=== PATIENT | female | born 1970 | race Caucasian/White ===

== ENCOUNTER 2017-06-28 21:36 | Emergency (ER) | payer OTHER ==
[~2017-06-28] VITALS: Ht 170.2 cm; Wt 99.8 kg
[~2017-06-28 21:36] MED LIST: ARIP10 PO; Aspirin EC81 MG PO; BUSP10 PO; CARV3.125 PO; CEPH500 PO; ESCI20 PO; FOLI1 PO; FURO20 PO; LEVO750 PO; LISI5 PO; NAPR550 PO; OXYACE5T PO; RXNAPNA550 PO; SPIR25 PO; SULTRIDS PO; THIA100 PO
[2017-06-28 22:11] LABS: BASOPHILS ABSOLUTE AUTO 0.05 K/mm3 (0.00-0.23); BASOPHILS PERCENT AUTO 1 % (0-2); EOSINOPHILS ABSOLUTE AUTO 0.58 K/mm3 (0.00-0.68); EOSINOPHILS PERCENT AUTO 6 % (0-6); Hematocrit 30.4 % (33.0-51.0); Hemoglobin 9.8 g/dL (11.5-16.0); IMMATURE GRAN ABSOLUTE AUTO 0.02 K/mm3 (0.00-0.10); IMMATURE GRAN PERCENT AUTO 0 % (0-1); LYMPHOCYTES ABSOLUTE AUTO 2.22 K/mm3 (0.84-5.20); LYMPHOCYTES PERCENT AUTO 23 % (21-46); MONOCYTES PERCENT AUTO 13 % (4-13); Mean Corpuscular HGB 30.6 pg (26.0-34.0); Mean Corpuscular HGB Conc 32.2 g/dL (31.5-36.5); Mean Corpuscular Volume 95 fL (80-100); Mean Platelet Volume 8.2 fL (9.1-12.4); NEUTROPHILS ABSOLUTE AUTO 5.68 K/mm3 (1.96-9.15); NEUTROPHILS PERCENT AUTO 58 % (41-73); Platelet Count 434 K/mm3 (150-400); RDW Coefficient Variation 15.4 % (11.7-14.2); RDW Standard Deviation 53.4 fL (35.1-46.3); White Blood Cell Count 9.85 K/mm3 (4.00-11.30)
[2017-06-28 22:31] LABS: Alanine Aminotransfer (ALT/SGP 24 U/L (12-78); Albumin, Blood 3.3 g/dL (3.4-5.0); Albumin/Globulin Ratio 0.8 (0.8-1.8); Alk Phos 78 U/L (50-136); Anion Gap 10 mmol/L (6-16); Aspartate Aminotrans (AST/SGOT 24 U/L (12-37); Bilirubin, Total 0.1 mg/dL (0.1-1.0); Blood Urea Nitrogen 12 mg/dL (8-24); Bun/Creatinine Ratio 14.4 (12.0-20.0); CO2, Blood 23 mmol/L (21-32); Calcium, Blood 8.1 mg/dL (8.5-10.1); Chloride, Blood 106 mmol/L (98-108); Creatinine, Blood 0.83 mg/dL (0.40-1.00); Globulin, Blood 3.9 g/dL (2.2-4.0); Glomerular Filtration Rate >60 (60-); Glucose, Blood 132 mg/dL (70-99); Potassium, Blood 3.5 mmol/L (3.5-5.5); Sodium, Blood 139 mmol/L (136-145); Total Protein, Blood 7.2 g/dL (6.4-8.2); Troponin I <0.015 ng/mL (0.000-0.040)
[2017-06-28 22:35] LABS: Influenza A Negative (NEGATIVE); Influenza B Negative (NEGATIVE)
[2017-06-28] MEDS ORDERED: HEART MED (23:59)
[2017-06-28] MEDS ORDERED: ALBU90OI INH (23:59)
[2017-06-29] MEDS ORDERED: ALBU90OI INH (01:40)
[2018-04-04] MEDS ORDERED: ENTRESTO 97 MG1 EACH PO (13:11)
[2018-04-04] MEDS ORDERED: FERRETTS325 MG (13:12)
== END 2017-06-29 01:53 | disposition home or self-care (01) ==
LOC: ER 21:36
PROVIDERS: Emergency Medicine
DX: J20.9 Acute bronchitis, unspecified (principal); J45.909 Unspecified asthma, uncomplicated; Z90.89 Acquired absence of other organs; Z90.49 Acquired absence of other specified parts of digestive tract
CPT/HCPCS: 36415; 71046; 80053; 83880; 84484; 85025; 87804; 93005; 93010; 99283

== ENCOUNTER 2018-07-27 12:09 | Emergency (ER) | payer OTHER ==
[~2018-07-27] VITALS: Ht 170.2 cm; Wt 113.4 kg
[~2018-07-27 12:09] MED LIST changes: +ALBU90OI INH; +ENTRESTO 97 MG1 EACH PO; +FERRETTS325 MG; +HEART MED
[2018-07-27 12:41] LABS: BASOPHILS ABSOLUTE AUTO 0.06 K/mm3 (0.00-0.23); BASOPHILS PERCENT AUTO 1 % (0-2); EOSINOPHILS ABSOLUTE AUTO 0.58 K/mm3 (0.00-0.68); EOSINOPHILS PERCENT AUTO 7 % (0-6); Hematocrit 33.5 % (33.0-51.0); Hemoglobin 10.9 g/dL (11.5-16.0); IMMATURE GRAN ABSOLUTE AUTO 0.04 K/mm3 (0.00-0.10); IMMATURE GRAN PERCENT AUTO 1 % (0-1); LYMPHOCYTES ABSOLUTE AUTO 1.82 K/mm3 (0.84-5.20); LYMPHOCYTES PERCENT AUTO 21 % (21-46); MONOCYTES ABSOLUTE AUTO 1.54 K/mm3 (0.16-1.47); MONOCYTES PERCENT AUTO 18 % (4-13); Mean Corpuscular HGB 30.8 pg (26.0-34.0); Mean Corpuscular HGB Conc 32.5 g/dL (31.5-36.5); Mean Corpuscular Volume 95 fL (80-100); Mean Platelet Volume 8.5 fL (9.1-12.4); NEUTROPHILS ABSOLUTE AUTO 4.72 K/mm3 (1.96-9.15); NEUTROPHILS PERCENT AUTO 54 % (41-73); Platelet Count 436 K/mm3 (150-400); RDW Standard Deviation 45.2 fL (35.1-46.3); Red Blood Cell Count 3.54 M/mm3 (3.80-5.20); White Blood Cell Count 8.76 K/mm3 (4.00-11.30)
[2018-07-27 12:56] LABS: Alanine Aminotransfer (ALT/SGP 18 U/L (12-78); Albumin, Blood 3.3 g/dL (3.4-5.0); Albumin/Globulin Ratio 0.8 (0.8-1.8); Alk Phos 61 U/L (50-136); Anion Gap 8 mmol/L (6-16); Aspartate Aminotrans (AST/SGOT 11 U/L (12-37); Bilirubin, Total 0.1 mg/dL (0.1-1.0); Blood Urea Nitrogen 11 mg/dL (8-24); CO2, Blood 25 mmol/L (21-32); Calcium, Blood 8.8 mg/dL (8.5-10.1); Chloride, Blood 107 mmol/L (98-108); Creatinine, Blood 0.73 mg/dL (0.40-1.00); Glomerular Filtration Rate >60 (60-); Glucose, Blood 109 mg/dL (70-99); Potassium, Blood 3.6 mmol/L (3.5-5.5); Sodium, Blood 140 mmol/L (136-145); Total Protein, Blood 7.3 g/dL (6.4-8.2); Troponin I <0.015 ng/mL (0.000-0.040)
[2018-07-27] MEDS ORDERED: TRAZ50 PO (13:42)
[2018-07-27] MEDS ORDERED: LAMO25 PO (13:43)
[2018-07-27] MEDS ORDERED: BUSP10 PO (13:43)
[2018-07-27] MEDS ORDERED: K-Tab10 MEQ PO (13:43)
[2018-07-27] MEDS ORDERED: Naltrexone HCl50 MG PO (13:43)
[2018-07-27] MEDS ORDERED: Prednisone20 MG PO (14:16)
[2018-07-27] MEDS ORDERED: Zithromax250 MG PO (14:16)
== END 2018-07-27 14:35 | disposition home or self-care (01) ==
LOC: ER 12:09
PROVIDERS: Physician Assistant
DX: J44.0 Chronic obstructive pulmonary disease with (acute) lower respiratory infection (principal); J18.9 Pneumonia, unspecified organism; J45.901 Unspecified asthma with (acute) exacerbation; Z79.899 Other long term (current) drug therapy; Z79.82 Long term (current) use of aspirin; I10 Essential (primary) hypertension
CPT/HCPCS: 36415; 71046; 80053; 83880; 84484; 85025; 93005; 93010; 94640; 96374; 99284-25; J2930

== ENCOUNTER 2019-03-25 14:43 | Emergency (ER) | payer MEDICAID ==
[~2019-03-25] VITALS: Ht 170.2 cm; Wt 108.9 kg
[~2019-03-25 14:43] MED LIST changes: +K-Tab10 MEQ PO; +LAMO25 PO; +Naltrexone HCl50 MG PO; +Prednisone20 MG PO; +TRAZ50 PO; +Zithromax250 MG PO
[2019-03-25 15:19] LABS: BASOPHILS ABSOLUTE AUTO 0.09 K/mm3 (0.00-0.23); BASOPHILS PERCENT AUTO 1 % (0-2); EOSINOPHILS ABSOLUTE AUTO 0.16 K/mm3 (0.00-0.68); EOSINOPHILS PERCENT AUTO 2 % (0-6); Hematocrit 36.3 % (33.0-51.0); Hemoglobin 11.9 g/dL (11.5-16.0); IMMATURE GRAN ABSOLUTE AUTO 0.03 K/mm3 (0.00-0.10); IMMATURE GRAN PERCENT AUTO 0 % (0-1); LYMPHOCYTES ABSOLUTE AUTO 3.01 K/mm3 (0.84-5.20); LYMPHOCYTES PERCENT AUTO 30 % (21-46); MONOCYTES ABSOLUTE AUTO 0.94 K/mm3 (0.16-1.47); MONOCYTES PERCENT AUTO 9 % (4-13); Mean Corpuscular HGB 30.6 pg (26.0-34.0); Mean Corpuscular HGB Conc 32.8 g/dL (31.5-36.5); Mean Corpuscular Volume 93 fL (80-100); Mean Platelet Volume 8.6 fL (9.1-12.4); NEUTROPHILS ABSOLUTE AUTO 5.96 K/mm3 (1.96-9.15); NEUTROPHILS PERCENT AUTO 59 % (41-73); Platelet Count 584 K/mm3 (150-400); RDW Coefficient Variation 12.8 % (11.7-14.2); Red Blood Cell Count 3.89 M/mm3 (3.80-5.20); White Blood Cell Count 10.19 K/mm3 (4.00-11.30)
[2019-03-25 15:53] LABS: Troponin I <0.015 ng/mL (0.000-0.040)
[2019-03-25 16:00] LABS: Alanine Aminotransfer (ALT/SGP 19 U/L (12-78); Albumin, Blood 3.6 g/dL (3.4-5.0); Albumin/Globulin Ratio 0.9 (0.8-1.8); Alk Phos 77 U/L (50-136); Anion Gap 6 mmol/L (6-16); Aspartate Aminotrans (AST/SGOT 18 U/L (12-37); Bilirubin, Total 0.3 mg/dL (0.1-1.0); Blood Urea Nitrogen 18 mg/dL (8-24); Bun/Creatinine Ratio 17.3 (12.0-20.0); CO2, Blood 25 mmol/L (21-32); Calcium, Blood 9.2 mg/dL (8.5-10.1); Chloride, Blood 106 mmol/L (98-108); Creatinine, Blood 1.04 mg/dL (0.40-1.00); Globulin, Blood 3.9 g/dL (2.2-4.0); Glomerular Filtration Rate >60 (60-); Glucose, Blood 111 mg/dL (70-99); Potassium, Blood 4.1 mmol/L (3.5-5.5); Sodium, Blood 137 mmol/L (136-145); Total Protein, Blood 7.5 g/dL (6.4-8.2)
== END 2019-03-25 19:12 | disposition home or self-care (01) ==
LOC: ER 14:43
PROVIDERS: Physician Assistant
DX: I50.9 Heart failure, unspecified (principal); Z79.899 Other long term (current) drug therapy; Z79.82 Long term (current) use of aspirin; Z79.52 Long term (current) use of systemic steroids; J44.9 Chronic obstructive pulmonary disease, unspecified
CPT/HCPCS: 36415; 71046; 80053; 83880; 84484; 85025; 93005; 93010; 99285-25

== ENCOUNTER → 2020-03-28 | Outpatient (CLI) | payer OTHER | END | disposition home or self-care (01) | LOC: LAB SHORT 13:58 → LAB EV 13:58 | DX: N39.0 Urinary tract infection, site not specified (principal) | CPT/HCPCS: 87077; 87086; 87186 ==

== ENCOUNTER → 2022-05-07 | Outpatient (CLI) | payer OTHER ==
[2022-05-07 11:41] LABS: BASOPHILS ABSOLUTE AUTO 0.09 K/mm3 (0.00-0.23); BASOPHILS PERCENT AUTO 1 % (0-2); EOSINOPHILS ABSOLUTE AUTO 0.21 K/mm3 (0.00-0.68); EOSINOPHILS PERCENT AUTO 2 % (0-6); Hematocrit 36.4 % (33.0-51.0); Hemoglobin 12.4 g/dL (11.5-16.0); IMMATURE GRAN ABSOLUTE AUTO 0.06 K/mm3 (0.00-0.10); IMMATURE GRAN PERCENT AUTO 1 % (0-1); LYMPHOCYTES ABSOLUTE AUTO 2.87 K/mm3 (0.84-5.20); LYMPHOCYTES PERCENT AUTO 25 % (21-46); MONOCYTES ABSOLUTE AUTO 1.02 K/mm3 (0.16-1.47); MONOCYTES PERCENT AUTO 9 % (4-13); Mean Corpuscular HGB Conc 34.1 g/dL (31.5-36.5); Mean Corpuscular Volume 94 fL (80-100); Mean Platelet Volume 8.6 fL (9.1-12.4); NEUTROPHILS ABSOLUTE AUTO 7.36 K/mm3 (1.96-9.15); NEUTROPHILS PERCENT AUTO 63 % (41-73); Platelet Count 448 K/mm3 (150-400); RDW Coefficient Variation 12.8 % (11.7-14.2); RDW Standard Deviation 43.8 fL (35.1-46.3); Red Blood Cell Count 3.88 M/mm3 (3.80-5.20); White Blood Cell Count 11.61 K/mm3 (4.00-11.30)
[2022-05-07 11:45] LABS: Bun/Creatinine Ratio 11.9 (12.0-20.0); Calcium, Blood 8.8 mg/dL (8.5-10.1); Creatinine, Blood 1.09 mg/dL (0.40-1.00)
== END | disposition home or self-care (01) ==
LOC: LAB SHORT 11:36 → LAB 11:36
PROVIDERS: Physician Assistant Medical
DX: R07.9 Chest pain, unspecified (principal)
CPT/HCPCS: 80048; 84484; 85025

== ENCOUNTER → 2022-07-24 | Outpatient (CLI) | payer OTHER ==
[2022-07-25 15:11] LABS: HPV 16 Negative (Negative); HPV 18 Negative (Negative); HPV OTHER HR TYPES Negative (Negative)
== END | disposition home or self-care (01) ==
LOC: LAB SHORT 14:15 → LAB 14:15
PROVIDERS: Nurse Practitioner Family
DX: Z11.51 Encounter for screening for human papillomavirus (HPV) (principal)
CPT/HCPCS: 87624; G0145

== ENCOUNTER 2023-04-18 07:11 | Day surgery (SDC) | payer OTHER ==
[~2023-04-18] VITALS: Ht 172.7 cm; Wt 129.1 kg
[~2023-04-18 07:11] MED LIST changes: +CETI5 PO; +JARDIANCE10 MG PO; +METO100ER PO; +PRESERVISION A1 EAC2 PO; +Vivitrol380 MG
[2023-04-18] MEDS ORDERED: FLUT1DIS5 INH (07:21)
[2023-04-18] MEDS ORDERED: TORS10 PO (07:23)
[2023-04-18 07:37] VITALS: BP 151/92
--- NOTE | 2023-04-18 08:01 | NUR ---
04/18/23 0801 Gogo Carnes History, Chart, Medications and Allergies reviewed before start of procedure.MONITOR INTACT WITH CONTINUOUS PULSE OXIMETRY, CONTINUOUS END TITAL CO2, AND INTERMITTENT BLOOD PRESSURE.3-LEAD EKG REVIEWED WITH PHYSICIAN PRIOR TO START OF PROCEDURE.O2 VIA N/C INTACT THROUGHOUT SEDATION/PROCEDURE.SEE ANSESTHESIA RECORD.
[2023-04-18 09:28] VITALS: BP 114/68
--- NOTE | 2023-04-18 09:32 | NUR ---
PT A&O, ABLE TO REPOSTION. REPORT RECEIVED FROM [place]
[2023-04-18 09:41] VITALS: BP 127/76
--- NOTE | 2023-04-18 10:05 | NUR ---
Discharge instructions reviewed with patient. Patient verbalizes understanding. Copy given to patient to take home. Patient States Post-Procedure ride home has been arranged. Discharged via wheelchair to private car for ride home.
== END 2023-04-18 10:00 | disposition home or self-care (01) ==
LOC: ORSCMMR 07:11 → ORD 08:00 → ORSCMMR 08:00
PROVIDERS: Internal Medicine Gastroenterology
PROC: 0DBH8ZX Excision of Cecum, Via Natural or Artificial Opening Endoscopic, Diagnostic (ICD-10-PCS; principal; 2023-04-18 08:00)
DX: Z12.11 Encounter for screening for malignant neoplasm of colon (principal); K63.5 Polyp of colon; J44.9 Chronic obstructive pulmonary disease, unspecified; I42.9 Cardiomyopathy, unspecified; F31.9 Bipolar disorder, unspecified; I10 Essential (primary) hypertension; R73.03 Prediabetes; E66.01 Morbid (severe) obesity due to excess calories; Z68.42 Body mass index [BMI] 45.0-49.9, adult; K57.30 Diverticulosis of large intestine without perforation or abscess without bleeding; Z79.899 Other long term (current) drug therapy
CPT/HCPCS: 82947; 88305; J2704; J7120

== ENCOUNTER 2024-04-25 15:30 | Inpatient (IN) | payer OTHER ==
[~2024-04-25] VITALS: Ht 170.2 cm; Wt 113.4 kg
[~2024-04-25 15:30] MED LIST changes: -CEFU250T47 PO; -DAPAGLIFLOZIN10 MG PO; -DULERA 200 MCG-13 GM INH; -POTA10T PO
[2024-04-25] MEDS ORDERED: NS 1,000 ML IV SCH ×2 (16:35→19:55)
[2024-04-25 20:49] LABS: Bun/Creatinine Ratio 11.1 (12.0-20.0); Calcium, Blood 8.4 mg/dL (8.5-10.1); Creatinine, Blood 6.12 mg/dL (0.40-1.00); Potassium, Blood 3.9 mmol/L (3.5-5.5)
[2024-04-25] MEDS ORDERED: FLU VACC TS2024-25(6MOS UP)/PF 45 MCG/0.5 ML SYRINGE IM SCH (21:55)
[2024-04-25] MEDS ORDERED: Lactated Ringer's 1,000 ML IV SCH (22:00)
[2024-04-25] MEDS ORDERED: Albuterol 2.5 MG/3 ML VIAL INH PRN (22:10)
[2024-04-25] MEDS ORDERED: TraZODone HCl 50 MG Tab PO PRN (22:15)
[2024-04-25] MEDS ORDERED: Mometasone/Formoterol MDI 200/5 mcg 13 GM INH SCH (22:35)
[2024-04-25] MEDS ORDERED: Albuterol HFA200 ACT/6.7 GM INH INH PRN (22:35)
[2024-04-25 22:48] LABS: Source, Urine Clean Catch
[2024-04-25 23:00] LABS: Bilirubin, Urine Neg (Neg); Blood, Urine 5+ (Neg); Glucose Qualitative, Urine Neg (Neg); Ketones, Urine Neg (Neg); Leukocyte Esterase, Urine 3+ (Neg); Nitrite, Urine Neg (Neg); Protein, Urine 3+ (Neg); Specific Gravity, Urine 1.015 (1.003-1.022); Urobilinogen, Urine NORM (Normal)
[2024-04-25 23:21] LABS: Appearance, Urine Turbid (Clear); Color, Urine Pale Yellow (P-Yellow)
[2024-04-25 23:22] LABS: Amorphous Light (0-Heavy); Bacteria Many /hpf; Mucus Light (0-Heavy); Squamous Epithelial Cells Few /hpf (Few); White Blood Cells, Urine TNTC /hpf (0-5)
[2024-04-25 23:23] LABS: U Amphetamine Screen Not Detected; U Barbituate Screen Not Detected; U Benzodiazapine Screen Not Detected; U Buprenorphine Screen Not Detected; U Cannabinoids Screen Not Detected; U Cocaine Screen Not Detected; U Methadone Screen Not Detected; U Methamphetamine Screen Not Detected; U Opiates Screen Not Detected; U Oxycodone Screen Not Detected; U Phencyclidine Screen Not Detected
[2024-04-25 23:32] VITALS: BP 153/89
[2024-04-26] MEDS ORDERED: LamoTRIgine 25 MG Tab PO SCH ×2 (00:20→09:00)
[2024-04-26] MEDS ORDERED: Metoprolol Succinate 50 MG TABCR PO SCH ×2 (00:20→09:00)
[2024-04-26 04:22] VITALS: BP 94/57
[2024-04-26 04:27] VITALS: BP 130/76
[2024-04-26 04:57] LABS: BASOPHILS ABSOLUTE AUTO 0.07 K/mm3 (0.00-0.23); BASOPHILS PERCENT AUTO 1 % (0-2); EOSINOPHILS ABSOLUTE AUTO 0.23 K/mm3 (0.00-0.68); EOSINOPHILS PERCENT AUTO 2 % (0-6); Hematocrit 28.8 % (33.0-51.0); Hemoglobin 9.5 g/dL (11.5-16.0); IMMATURE GRAN ABSOLUTE AUTO 0.14 K/mm3 (0.00-0.10); IMMATURE GRAN PERCENT AUTO 1 % (0-1); LYMPHOCYTES ABSOLUTE AUTO 2.77 K/mm3 (0.84-5.20); LYMPHOCYTES PERCENT AUTO 20 % (21-46); MONOCYTES ABSOLUTE AUTO 1.22 K/mm3 (0.16-1.47); MONOCYTES PERCENT AUTO 9 % (4-13); Mean Corpuscular HGB 30.3 pg (26.0-34.0); Mean Corpuscular Volume 92 fL (80-100); Mean Platelet Volume 8.2 fL (9.1-12.4); NEUTROPHILS ABSOLUTE AUTO 9.33 K/mm3 (1.96-9.15); NEUTROPHILS PERCENT AUTO 68 % (41-73); Platelet Count 520 K/mm3 (150-400); RDW Coefficient Variation 14.7 % (11.7-14.2); RDW Standard Deviation 49.6 fL (35.1-46.3); Red Blood Cell Count 3.14 M/mm3 (3.80-5.20); White Blood Cell Count 13.76 K/mm3 (4.00-11.30)
[2024-04-26 05:31] LABS: Albumin, Blood 2.9 g/dL (3.4-5.0); Albumin/Globulin Ratio 0.6 (0.8-1.8); Bilirubin, Total 0.3 mg/dL (0.1-1.0); Bun/Creatinine Ratio 11.9 (12.0-20.0); Calcium, Blood 8.8 mg/dL (8.5-10.1); Creatinine, Blood 5.63 mg/dL (0.40-1.00); Globulin, Blood 4.5 g/dL (2.2-4.0); Total Protein, Blood 7.4 g/dL (6.4-8.2)
--- NOTE | 2024-04-26 05:33 | NUR ---
SHIFT SUMMARY PT ADMITTED TO [facility] AT 2330 FOR ACUTE KIDNEY FAILURE. PT HAD SYMPTOMS OF DIZZINESS WITH FALL EARLIER YESTERDAY AND WENT TO URGENT CARE. IT WAS THERE THAT HER KIDNEY FUNCTION WAS NOTED TO BE ABNORMAL. PT DENIES DIZZINESS THROUGH NIGHT. AWARE TO CALL FOR ASSIST BEFORE GETTING OUT OF BED. 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 PT CONNECTED TO IVF, CONTINOUS PULSE OX, AND TELE. IVF ORDERED X1 LITER. PT VOIDING VERY HAZY/CLOUDY URINE. I/O'S MAINTAINED. SIDE RAILS UP X2, CALL LIGHT WITHIN REACH. BED ALARM ON.
[2024-04-26 05:41] VITALS: BP 130/76
[2024-04-26 07:21] VITALS: BP 115/66
[2024-04-26] MEDS ORDERED: Lactated Ringer's 1,000 ML IV SCH (08:10)
[2024-04-26] MEDS ORDERED: BusPIRone HCl 10 MG Tab PO SCH (09:00)
[2024-04-26] MEDS ORDERED: Heparin Sodium,Porcine 5,000 UNIT/0.5 ML SDV SC SCH (09:00)
[2024-04-26] MEDS ORDERED: Enoxaparin 30 MG/0.3 ML SYR SC SCH (09:00)
[2024-04-26] MEDS ORDERED: CefTRIAXone Sodium 1,000 MG in NS 100 ML IV SCH (14:00)
[2024-04-26 14:43] LABS: Bun/Creatinine Ratio 11.8 (12.0-20.0); Calcium, Blood 9.3 mg/dL (8.5-10.1); Creatinine, Blood 5.42 mg/dL (0.40-1.00); Potassium, Blood 4.1 mmol/L (3.5-5.5)
[2024-04-26 14:56] LABS: Thyroid Stimulating Hormone 1.03 uIU/mL (0.360-4.800); Uric Acid, Blood 10.6 mg/dL (2.6-6.0)
--- NOTE | 2024-04-26 14:58 | NUR ---
SHIFT SUMMARY PATIENT INDEPENDENT TO SBA FOR EQUIPEMENT MANAGEMENT. POOR VISION DUE TO MACULAR DEGENERATION. A/O X4. LR INFUSING. RECEIVING ROCEPHIN IV. ULTRASOUND PERFORMED THIS SHIFT, AWAITING CT. VOIDING ADEQUATE AMOUNTS, 2 BM THIS SHIFT. NO C/O PAIN. EATING WELL, NO NAUSEA. CALL LIGHT IN REACH, CARES ONGOING.
[2024-04-26 15:53] VITALS: BP 116/63
[2024-04-26 19:43] LABS: Eosinophils-Raw #,Urine 1
[2024-04-26 19:50] VITALS: BP 126/81
[2024-04-26 19:50] LABS: White Blood Cells Urine 50-100 /hpf (0-5)
[2024-04-27 04:28] VITALS: BP 149/88
--- NOTE | 2024-04-27 05:09 | NUR ---
SHIFT SUMMARY PT CONTINUES TO HAVE CLOUDY/HAZY/TURBID URINE. DENIES ANY PAIN SYMPTOMS. IVF INFUSING THROUGH NIGHT. PT UP WITH SBA. SLEPT ON/OFF THROUGH THE NIGHT. AM LABS PENDING. CALL LIGHT WITHIN REACH, SIDERAILS UP X2.
[2024-04-27 07:21] LABS: Albumin, Blood 2.5 g/dL (3.4-5.0); Anion Gap 13 mmol/L (3-11); Blood Urea Nitrogen 58 mg/dL (8-24); Bun/Creatinine Ratio 12.9 (12.0-20.0); CO2, Blood 19 mmol/L (21-32); Chloride, Blood 113 mmol/L (98-108); Creatinine, Blood 4.51 mg/dL (0.40-1.00); Glomerular Filtration Rate 11 (60-); Glucose, Blood 103 mg/dL (70-99); Phosphorus, Blood 4.7 mg/dL (2.5-4.9); Potassium, Blood 4.7 mmol/L (3.5-5.5); Sodium, Blood 140 mmol/L (136-145)
[2024-04-27 07:25] VITALS: BP 110/60
[2024-04-27 08:01] LABS: BASOPHILS ABSOLUTE AUTO 0.05 K/mm3 (0.00-0.23); BASOPHILS PERCENT AUTO 0 % (0-2); EOSINOPHILS ABSOLUTE AUTO 0.23 K/mm3 (0.00-0.68); EOSINOPHILS PERCENT AUTO 2 % (0-6); Hematocrit 24.9 % (33.0-51.0); Hemoglobin 8.3 g/dL (11.5-16.0); IMMATURE GRAN ABSOLUTE AUTO 0.08 K/mm3 (0.00-0.10); IMMATURE GRAN PERCENT AUTO 1 % (0-1); LYMPHOCYTES ABSOLUTE AUTO 2.61 K/mm3 (0.84-5.20); LYMPHOCYTES PERCENT AUTO 23 % (21-46); MONOCYTES ABSOLUTE AUTO 1.31 K/mm3 (0.16-1.47); MONOCYTES PERCENT AUTO 12 % (4-13); Mean Corpuscular HGB 30.9 pg (26.0-34.0); Mean Corpuscular HGB Conc 33.3 g/dL (31.5-36.5); Mean Corpuscular Volume 93 fL (80-100); Mean Platelet Volume 8.1 fL (9.1-12.4); NEUTROPHILS ABSOLUTE AUTO 6.97 K/mm3 (1.96-9.15); NEUTROPHILS PERCENT AUTO 62 % (41-73); Platelet Count 500 K/mm3 (150-400); RDW Coefficient Variation 14.8 % (11.7-14.2); Red Blood Cell Count 2.69 M/mm3 (3.80-5.20); White Blood Cell Count 11.25 K/mm3 (4.00-11.30)
[2024-04-27] MEDS ORDERED: TraZODone HCl 100 MG Tab PO PRN (09:50)
--- NOTE | 2024-04-27 11:50 | NUR ---
Upon receiving a referral for spiritual care, I visited the patient. The patient is sitting on the EOB and alert. She talks at length about the emotional season that she is in and how she has had to lean into her connections to her thelma, family and friends. She states that she feels all the support and love but also realizes her role in getting well and staying healthy. SHe expresses her fears and worries. I provided therapeutic listening, anxiety containment, gentle certified travel counselor and prayer. Patient responded well and showed signs of reduced stress and greater peace. I will continue to remain available to patient and family.
--- NOTE | 2024-04-27 16:30 | NUR ---
SHIFT SUMMARY PT WOKE FOR SHIFT REPORT THIS AM. NO C/O. PT RECIEVING IVF'S FOR ARF. INDEPENDENT IN AND TO BTHRM. REQUESTED INCREASE IN TRAZADONE TO HOME DOSE; DR AGOSTO NOTIFIED. NEW ORDERS PLACED. DR AGOSTO HERE TO SEE PT AND DISCUSS PLAN OF CARE. VISITORS TO THIS AFTERNOON. PLEASANT AND CO-OP WITH CARE. ABLE TO MAKE NEEDS KNOWN.
[2024-04-27 16:58] VITALS: BP 117/57
[2024-04-27 19:20] VITALS: BP 139/78
[2024-04-28 02:28] VITALS: BP 142/72
--- NOTE | 2024-04-28 05:28 | NUR ---
SHIFT SUMMARY PT UP IN ROOM AND AMBULATED IN HALLWAY WITH SBA. URINE IS STILL CLOUDY/HAZY, BUT APPEARS MORE YELLOW THIS SHIFT. IVF CONTINUES. PT SLEPT OFF/ON THROUGH THE NIGHT. CALL LIGHT WITHIN REACH, SIDE RAILS UP X2, LABS PENDING.
[2024-04-28 05:50] LABS: BASOPHILS ABSOLUTE AUTO 0.05 K/mm3 (0.00-0.23); BASOPHILS PERCENT AUTO 0 % (0-2); EOSINOPHILS ABSOLUTE AUTO 0.26 K/mm3 (0.00-0.68); EOSINOPHILS PERCENT AUTO 2 % (0-6); Hematocrit 25.3 % (33.0-51.0); Hemoglobin 8.2 g/dL (11.5-16.0); IMMATURE GRAN PERCENT AUTO 1 % (0-1); LYMPHOCYTES ABSOLUTE AUTO 2.72 K/mm3 (0.84-5.20); LYMPHOCYTES PERCENT AUTO 22 % (21-46); MONOCYTES ABSOLUTE AUTO 1.41 K/mm3 (0.16-1.47); MONOCYTES PERCENT AUTO 11 % (4-13); Mean Corpuscular HGB 30.1 pg (26.0-34.0); Mean Corpuscular HGB Conc 32.4 g/dL (31.5-36.5); Mean Corpuscular Volume 93 fL (80-100); Mean Platelet Volume 8.6 fL (9.1-12.4); NEUTROPHILS ABSOLUTE AUTO 7.87 K/mm3 (1.96-9.15); NEUTROPHILS PERCENT AUTO 63 % (41-73); Platelet Count 525 K/mm3 (150-400); RDW Coefficient Variation 14.9 % (11.7-14.2); RDW Standard Deviation 51.1 fL (35.1-46.3); Red Blood Cell Count 2.72 M/mm3 (3.80-5.20); White Blood Cell Count 12.41 K/mm3 (4.00-11.30)
[2024-04-28 06:10] LABS: Bun/Creatinine Ratio 13.2 (12.0-20.0); Creatinine, Blood 3.87 mg/dL (0.40-1.00)
[2024-04-28 07:25] VITALS: BP 128/74
[2024-04-28] MEDS ORDERED: DAPAGLIFLOZIN10 MG PO (10:31)
[2024-04-28] MEDS ORDERED: POTA10T PO (10:51)
[2024-04-28] MEDS ORDERED: Lactated Ringer's 1,000 ML IV SCH (13:00)
--- NOTE | 2024-04-28 16:00 | NUR ---
SHIFT SUMMARY PT RESTING QUIETLY AT START OF SHIFT. WOKE FOR SHIFT REPORT. IVF'S INFUSING PER EMAR IN NEW IV PLACED LAST NIGHT. PT UP AND DOWN OUT OF BED AND UP TO EOB, OCCLUDING IV SITE. IV SITE NO LONGER PATENT. DR DAVEY NOTIFIED; PT NEEDING ONE MORE DAY OF IVF'S AND THEN TO D/C HOME TOMORROW. [facility]RG RN'S NOTIFIED AND ABLE TO PLACE NEW IV WITH US. PT IS VERY DIFFICULT START. VISITORS TO THIS AFTERNOON. HOME MED LIST OBTAINED FROM [facility] PER ORDERS. MED LIST UPDATED. DR DAVEY GIVEN LIST TO LOOK OVER WHEN HERE TO SEE PT. PT RESTING QUIETLY AT THIS TIME. CALL LT IN REACH.
[2024-04-28 16:40] VITALS: BP 138/75
[2024-04-28 19:43] VITALS: BP 117/66
[2024-04-29 02:08] VITALS: BP 127/67
--- NOTE | 2024-04-29 05:55 | NUR ---
SHIFT SUMMARY PT INDEPENDENT IN ROOM. VOIDING WITHOUT DIFFICULTY. URINE REMAINS CLOUDY, BUT IS MUCH JUICE PACKAGING MACHINES SETTER IN COLOR. DENIES THE NEED FOR PAIN MEDICATION. IVF CONTINUES TO INFUSE. SLEPT ON/OFF THROUGH THE NIGHT. CALL LIGHT WITHIN REACH. SIDE RAILS UP X2.
[2024-04-29 06:24] LABS: Bun/Creatinine Ratio 12.5 (12.0-20.0); Calcium, Blood 9.1 mg/dL (8.5-10.1); Creatinine, Blood 3.04 mg/dL (0.40-1.00); Potassium, Blood 4.1 mmol/L (3.5-5.5)
[2024-04-29 06:42] LABS: ALBUMIN 3.12 g/dL (3.75-5.01); ALPHA 1 GLOBULIN 0.46 g/dL (0.19-0.46); ALPHA 2 GLOBULIN 1.06 g/dL (0.48-1.05); BETA GLOBULIN 0.77 g/dL (0.48-1.10); IMMUNOFIXATION REFLEX Not Done; TOTAL PROTEIN,SERUM 6.7 g/dL (6.3-8.2)
[2024-04-29 07:35] VITALS: BP 125/70
[2024-04-29] MEDS ORDERED: Acetaminophen 325 MG TABLET PO PRN (09:30)
[2024-04-29] MEDS ORDERED: CEFU250T47 PO (12:10)
[2024-04-29] MEDS ORDERED: DULERA 200 MCG-13 GM INH (12:10)
--- NOTE | 2024-04-29 12:44 | NUR ---
PT DISCHARGED THE PT VERBALIZED UNDERSTANDING OF THE DC INSTRUCTIONS. PTS PRESCRIPTIONS WERE FAXED TO HER PHARMACY. THE PT WAS REMINDED TO SHEDULE AN APPOINTMENT WITH HER PCP FOR POST HOSPITAL REVIEW. THE PT WAS TRANSFERED VIA WHEELCHAIR ACCOMPANIED BY THE LINING PARTS SEWER TO MEET HER RIDE.
== END 2024-04-29 12:39 | disposition home or self-care (01) | DRG 683 ==
LOC: ER 15:30 → MEDS 15:31 → ENPENDDIS 04-29 11:49 → MEDS 04-29 12:39
PROVIDERS: Emergency Medicine; Internal Medicine; Student in an Organized Health Care Education/Training Program; ADMIT Internal Medicine
DX: N17.9 Acute kidney failure, unspecified (principal); I50.22 Chronic systolic (congestive) heart failure; N39.0 Urinary tract infection, site not specified; F31.9 Bipolar disorder, unspecified; R79.1 Abnormal coagulation profile; J44.9 Chronic obstructive pulmonary disease, unspecified; D64.9 Anemia, unspecified; F10.11 Alcohol abuse, in remission; F15.11 Other stimulant abuse, in remission; Z88.8 Allergy status to other drugs, medicaments and biological substances; Z79.899 Other long term (current) drug therapy; Z79.82 Long term (current) use of aspirin; Z90.49 Acquired absence of other specified parts of digestive tract; Z90.89 Acquired absence of other organs; Z98.890 Other specified postprocedural states; R55 Syncope and collapse
CPT/HCPCS: 36415; 71046; 74150; 76770; 80048; 80053; 80069; 81001; 82570; 82784; 83521; 84155; 84165; 84443; 84484; 84540; 84550; 85025; 85379; 86334; 87077; 87086; 87186; 87205; 93005; 93010; 94640; 94664; 94760; 94762; 96360; 99284-25; A9270; J0696; J1644; J7030; J7120

== ENCOUNTER → 2024-04-25 | Outpatient (CLI) | payer OTHER ==
[~2024-04-25] MED LIST changes: +CEFU250T47 PO; +DAPAGLIFLOZIN10 MG PO; +DULERA 200 MCG-13 GM INH; +FLUT1DIS5 INH; +POTA10T PO; +TORS10 PO
[2024-04-25 14:17] LABS: BASOPHILS ABSOLUTE AUTO 0.06 K/mm3 (0.00-0.23); BASOPHILS PERCENT AUTO 1 % (0-2); EOSINOPHILS ABSOLUTE AUTO 0.16 K/mm3 (0.00-0.68); EOSINOPHILS PERCENT AUTO 1 % (0-6); Hemoglobin 9.2 g/dL (11.5-16.0); IMMATURE GRAN ABSOLUTE AUTO 0.11 K/mm3 (0.00-0.10); IMMATURE GRAN PERCENT AUTO 1 % (0-1); LYMPHOCYTES ABSOLUTE AUTO 2.31 K/mm3 (0.84-5.20); LYMPHOCYTES PERCENT AUTO 18 % (21-46); MONOCYTES PERCENT AUTO 10 % (4-13); Mean Corpuscular HGB 29.8 pg (26.0-34.0); Mean Corpuscular HGB Conc 32.9 g/dL (31.5-36.5); Mean Corpuscular Volume 91 fL (80-100); Mean Platelet Volume 8.2 fL (9.1-12.4); NEUTROPHILS ABSOLUTE AUTO 8.69 K/mm3 (1.96-9.15); NEUTROPHILS PERCENT AUTO 69 % (41-73); Platelet Count 476 K/mm3 (150-400); RDW Coefficient Variation 14.8 % (11.7-14.2); Red Blood Cell Count 3.09 M/mm3 (3.80-5.20); White Blood Cell Count 12.53 K/mm3 (4.00-11.30)
[2024-04-25 14:23] LABS: Bun/Creatinine Ratio 10.1 (12.0-20.0); Calcium, Blood 8.8 mg/dL (8.5-10.1); Creatinine, Blood 7.02 mg/dL (0.40-1.00); Potassium, Blood 3.6 mmol/L (3.5-5.5)
== END | disposition home or self-care (01) ==
LOC: LAB SHORT 14:13 → LAB 14:13
PROVIDERS: Physician Assistant Surgical
DX: R55 Syncope and collapse (principal)
CPT/HCPCS: 80048; 84484; 85025; 85379

== ENCOUNTER → 2024-05-06 | Outpatient (CLI) | payer OTHER ==
[~2024-05-06] MED LIST changes: +CEFU250T47 PO; +DAPAGLIFLOZIN10 MG PO; +DULERA 200 MCG-13 GM INH; +LAMO100 PO; -LAMO25 PO; +POTA10T PO; +Prinivil10 MG PO
== END ==
LOC: LAB 17:40 → LAB SHORT 17:40
DX: M54.50 Low back pain, unspecified (principal)
CPT/HCPCS: 87086

== ENCOUNTER → 2024-05-08 | Outpatient (CLI) | payer OTHER ==
[~2024-05-08] MED LIST changes: -LAMO100 PO; +LAMO25 PO; -Prinivil10 MG PO
== END ==
LOC: LAB 15:28 → LAB SHORT 15:28
DX: N39.0 Urinary tract infection, site not specified (principal)
CPT/HCPCS: 87086

== ENCOUNTER 2024-05-24 08:45 | Inpatient (IN) | payer MEDICARE, OTHER ==
[~2024-05-24] VITALS: Ht 170.2 cm; Wt 121.6 kg
[~2024-05-24 08:45] MED LIST changes: +LAMO100 PO; -LAMO25 PO
[2024-05-24] MEDS ORDERED: Ondansetron HCl 2 MG / ML 2ML Vial IV ONE (10:10)
[2024-05-24] MEDS ORDERED: NS 1,000 ML IV SCH (10:10)
[2024-05-24 10:25] LABS: BASOPHILS ABSOLUTE AUTO 0.07 K/mm3 (0.00-0.23); BASOPHILS PERCENT AUTO 0 % (0-2); EOSINOPHILS ABSOLUTE AUTO 0.16 K/mm3 (0.00-0.68); EOSINOPHILS PERCENT AUTO 1 % (0-6); Hematocrit 30.8 % (33.0-51.0); Hemoglobin 9.8 g/dL (11.5-16.0); IMMATURE GRAN PERCENT AUTO 1 % (0-1); LYMPHOCYTES ABSOLUTE AUTO 2.02 K/mm3 (0.84-5.20); LYMPHOCYTES PERCENT AUTO 11 % (21-46); MONOCYTES ABSOLUTE AUTO 1.58 K/mm3 (0.16-1.47); MONOCYTES PERCENT AUTO 8 % (4-13); Mean Corpuscular HGB 30.4 pg (26.0-34.0); Mean Corpuscular HGB Conc 31.8 g/dL (31.5-36.5); Mean Corpuscular Volume 96 fL (80-100); Mean Platelet Volume 8.3 fL (9.1-12.4); NEUTROPHILS ABSOLUTE AUTO 15.27 K/mm3 (1.96-9.15); NEUTROPHILS PERCENT AUTO 80 % (41-73); Platelet Count 452 K/mm3 (150-400); RDW Coefficient Variation 14.9 % (11.7-14.2); RDW Standard Deviation 52.6 fL (35.1-46.3); Red Blood Cell Count 3.22 M/mm3 (3.80-5.20)
[2024-05-24 10:54] LABS: Albumin, Blood 3.2 g/dL (3.4-5.0); Albumin/Globulin Ratio 0.7 (0.8-1.8); Bilirubin, Total 0.3 mg/dL (0.1-1.0); Bun/Creatinine Ratio 10.6 (12.0-20.0); Calcium, Blood 9.7 mg/dL (8.5-10.1); Creatinine, Blood 1.8 mg/dL (0.40-1.00); Globulin, Blood 4.6 g/dL (2.2-4.0); Potassium, Blood 3.9 mmol/L (3.5-5.5); Total Protein, Blood 7.8 g/dL (6.4-8.2)
[2024-05-24 11:13] LABS: Source, Urine Clean Catch
[2024-05-24 11:17] LABS: Appearance, Urine Hazy (Clear); Bilirubin, Urine Neg (Neg); Blood, Urine 5+ (Neg); Glucose Qualitative, Urine 3+ (Neg); Ketones, Urine Neg (Neg); Leukocyte Esterase, Urine 3+ (Neg); Nitrite, Urine Pos (Neg); Protein, Urine 3+ (Neg); Specific Gravity, Urine 1.015 (1.003-1.022); Urobilinogen, Urine NORM (Normal)
[2024-05-24 11:33] LABS: Color, Urine Pale Yellow (P-Yellow)
[2024-05-24 11:34] LABS: Red Blood Cells, Urine 25-50 /hpf (0-2); White Blood Cells, Urine 50-100 /hpf (0-5)
[2024-05-24 11:35] LABS: Bacteria Many /hpf; Mucus Light (0-Heavy); Squamous Epithelial Cells Rare /hpf (Few)
[2024-05-24] MEDS ORDERED: NS 1,000 ML IV ONE (14:04)
[2024-05-24] MEDS ORDERED: Ondansetron HCl 2 MG / ML 2ML Vial ONE (14:04)
[2024-05-24] MEDS ORDERED: CefTRIAXone Sodium 1,000 MG in NS 100 ML IV ONE (15:00)
[2024-05-24] MEDS ORDERED: OxyCODONE HCL 5 MG TAB PO ONE (16:15)
[2024-05-24] MEDS ORDERED: RX Prepack 6 Tabs Oxycodone 5mg UD ONE (16:35)
[2024-05-24] MEDS ORDERED: RX Prepack 2 Tabs Ondansetron ODT 4MG UD ONE (16:40)
[2024-05-24] MEDS ORDERED: HYDROmorphone HCl/Pf 1MG SYR IV ONE (17:15)
[2024-05-24] MEDS ORDERED: Ondansetron HCl 2 MG / ML 2ML Vial IV PRN (19:25)
[2024-05-24] MEDS ORDERED: Metoclopramide HCl 5MG / ML 2ML Vial IV PRN (19:25)
[2024-05-24] MEDS ORDERED: Lactated Ringer's 1,000 ML IV SCH (19:25)
[2024-05-24] MEDS ORDERED: FentaNYL Citrate 50 MCG/ML 2 ML Injection IV PRN (19:25)
[2024-05-24] MEDS ORDERED: OxyCODONE 5 mg/Acetamin 325 mg TABLET PO PRN (19:25)
[2024-05-24] MEDS ORDERED: FLU VACC TS2024-25(6MOS UP)/PF 45 MCG/0.5 ML SYRINGE IM ONE (19:25)
[2024-05-24] MEDS ORDERED: TraZODone HCl 100 MG Tab PO PRN (19:35)
[2024-05-24] MEDS ORDERED: Albuterol 2.5 MG/3 ML VIAL INH PRN (19:35)
[2024-05-24] MEDS ORDERED: Mometasone/Formoterol MDI 100/5 mcg 13 GM INH SCH (20:40)
[2024-05-24] MEDS ORDERED: Sennosides 8.6 MG Tab PO SCH (21:00)
[2024-05-24] MEDS ORDERED: Lactobacil 2-S.Thermo-Bifido 1 1 Cap PO SCH ×2 (21:00)
[2024-05-24] MEDS ORDERED: BusPIRone HCl 10 MG Tab PO SCH (21:00)
[2024-05-24 21:17] VITALS: BP 150/82
[2024-05-25 03:46] VITALS: BP 133/73
--- NOTE | 2024-05-25 05:40 | NUR ---
SHIFT SUMMARY: PT IS ALERT AND ORIENTED. PT IS CALM AND COOPERATIVE WITH CARE. PT CALLS APPROPRIATELY. PT IS INDEPENDENT IN THE ROOM. PT REPORTS PAIN ON SEVERAL OCCASIONS, MEDICATING PER EMAR. PT DENIES NAUSEA, VOMITING, AND SOB. FLUIDS RUNNING ORDERED. PT SLEPT MUCH OF THE SHIFT WHEN NOT DISTURBED. NO ACUTE CHANGES OR COMPLICATIONS OVERNIGHT. BED IN LOW POSITION, CALL LIGHT WITHIN REACH. WILL REPORT TO DAY NURSE.
[2024-05-25 05:41] LABS: BASOPHILS ABSOLUTE AUTO 0.06 K/mm3 (0.00-0.23); BASOPHILS PERCENT AUTO 0 % (0-2); EOSINOPHILS ABSOLUTE AUTO 0.01 K/mm3 (0.00-0.68); EOSINOPHILS PERCENT AUTO 0 % (0-6); Hematocrit 25.6 % (33.0-51.0); Hemoglobin 8.3 g/dL (11.5-16.0); IMMATURE GRAN ABSOLUTE AUTO 0.05 K/mm3 (0.00-0.10); IMMATURE GRAN PERCENT AUTO 0 % (0-1); LYMPHOCYTES ABSOLUTE AUTO 2.27 K/mm3 (0.84-5.20); LYMPHOCYTES PERCENT AUTO 15 % (21-46); MONOCYTES ABSOLUTE AUTO 2.12 K/mm3 (0.16-1.47); MONOCYTES PERCENT AUTO 14 % (4-13); Mean Corpuscular HGB 30.4 pg (26.0-34.0); Mean Corpuscular HGB Conc 32.4 g/dL (31.5-36.5); Mean Corpuscular Volume 94 fL (80-100); Mean Platelet Volume 8.4 fL (9.1-12.4); NEUTROPHILS PERCENT AUTO 71 % (41-73); Platelet Count 386 K/mm3 (150-400); RDW Standard Deviation 52.2 fL (35.1-46.3); Red Blood Cell Count 2.73 M/mm3 (3.80-5.20); White Blood Cell Count 15.51 K/mm3 (4.00-11.30)
[2024-05-25 06:08] LABS: Bun/Creatinine Ratio 9.1 (12.0-20.0); Creatinine, Blood 1.97 mg/dL (0.40-1.00); Magnesium, Blood 1.8 mg/dL (1.6-2.4); Potassium, Blood 3.5 mmol/L (3.5-5.5)
[2024-05-25 07:35] VITALS: BP 120/73
[2024-05-25] MEDS ORDERED: Metoprolol Succinate 50 MG TABCR PO SCH (09:00)
[2024-05-25] MEDS ORDERED: LamoTRIgine 100 MG Tab PO SCH (09:00)
[2024-05-25] MEDS ORDERED: Aspirin 81 MG Chew PO SCH (09:00)
[2024-05-25] MEDS ORDERED: Docusate Sodium 100 MG Cap PO SCH (09:00)
[2024-05-25] MEDS ORDERED: Heparin Sodium 5000 Units/ML 1ML MDV SC SCH (09:00)
[2024-05-25] MEDS ORDERED: CefTRIAXone Sodium 1,000 MG in NS 100 ML IV SCH (09:00)
[2024-05-25] MEDS ORDERED: NS 250 ML IV PRN ×2 (09:15→10:20)
[2024-05-25] MEDS ORDERED: Prinivil10 MG PO (13:43)
[2024-05-25] MEDS ORDERED: OxyCODONE 5 mg/Acetamin 325 mg TABLET PO PRN (14:05)
[2024-05-25] MEDS ORDERED: Acetaminophen 325 MG TABLET PO PRN (14:05)
--- NOTE | 2024-05-25 18:38 | NUR ---
SHIFT SUMMARY- PT ALERT, ORIENTED, INDEPENDENT IN THE ROOM. PT HAS LR RUNNING PER EMAR. SHE HAS BEEN VOIDING SLIGHTLY PINK URINE WITH SEDIMENT, DR BRANDON. PT WAS MEDICATED WITH OXY, HOWEVER HER BIGGEST PAIN COMPLAINT WAS A HEADACHE. CALED DR PHIPPS AND RECIEVED AN ORDER FOR TYLENOL, PT STATED THAT HELPED TAKING HER 5/10 DOWN TO 3/10. PT CURRENTLY IN BED, CALL LIGHT IN REACH NO S&S OF DISTRESS NOTED.
[2024-05-25 19:06] VITALS: BP 123/70
[2024-05-26 04:10] VITALS: BP 155/83
--- NOTE | 2024-05-26 05:30 | NUR ---
AAOX4, INDEPENDENT IN ROOM AND USES CALL LIGHT APROPRIATELY. URINATING WELL WITHOUT PAIN, DENIES FLANK PAIN. RESTED WELL THOUROUT THE NIGHT AND ANTICIPATING GOING HOME THIS AM.
[2024-05-26 06:19] LABS: BASOPHILS ABSOLUTE AUTO 0.06 K/mm3 (0.00-0.23); BASOPHILS PERCENT AUTO 1 % (0-2); EOSINOPHILS ABSOLUTE AUTO 0.13 K/mm3 (0.00-0.68); EOSINOPHILS PERCENT AUTO 1 % (0-6); Hematocrit 23.6 % (33.0-51.0); Hemoglobin 7.7 g/dL (11.5-16.0); IMMATURE GRAN ABSOLUTE AUTO 0.07 K/mm3 (0.00-0.10); IMMATURE GRAN PERCENT AUTO 1 % (0-1); LYMPHOCYTES ABSOLUTE AUTO 2.01 K/mm3 (0.84-5.20); LYMPHOCYTES PERCENT AUTO 18 % (21-46); MONOCYTES ABSOLUTE AUTO 1.42 K/mm3 (0.16-1.47); MONOCYTES PERCENT AUTO 12 % (4-13); Mean Corpuscular HGB 30.8 pg (26.0-34.0); Mean Corpuscular HGB Conc 32.6 g/dL (31.5-36.5); Mean Corpuscular Volume 94 fL (80-100); Mean Platelet Volume 8.2 fL (9.1-12.4); NEUTROPHILS ABSOLUTE AUTO 7.73 K/mm3 (1.96-9.15); NEUTROPHILS PERCENT AUTO 68 % (41-73); Platelet Count 376 K/mm3 (150-400); RDW Coefficient Variation 15.2 % (11.7-14.2); RDW Standard Deviation 52.5 fL (35.1-46.3); White Blood Cell Count 11.42 K/mm3 (4.00-11.30)
[2024-05-26 06:45] LABS: Bun/Creatinine Ratio 10.2 (12.0-20.0); Creatinine, Blood 1.86 mg/dL (0.40-1.00); Potassium, Blood 4.1 mmol/L (3.5-5.5)
[2024-05-26 07:50] VITALS: BP 166/96
[2024-05-26 10:34] VITALS: BP 138/75
[2024-05-26] MEDS ORDERED: CEFP200 PO (11:36)
--- NOTE | 2024-05-26 12:27 | NUR ---
DISCHARGE SUMMARY PATIENT MEDICATION AND EDUCATION PRINTOUTS PROVIDED TO PATIENT AND REVIEWED WITH PATIENT. PATIENT DENIES ANY PAIN AT THIS TIME. SIGNATURE OBTAINED. PATIENT IV REMOVED BY NURSES SUPERVISOR AT 1215. PATIENT LEFT UNIT AT 1225 VIA AMBUTLATION. SHE DECLINED OFFER FOR WHEELCHAIR TO FRONT ENTRANCE WHERE SHE WILL BE LEAVING VIA PRIVATE VEHICLE WITH FRIEND.
== END 2024-05-26 12:33 | disposition home or self-care (01) | DRG 690 ==
LOC: ER 08:45 → ERHOLD 19:21 → MEDS 19:21
PROVIDERS: Nurse Practitioner Acute Care; Physician Assistant; ADMIT Student in an Organized Health Care Education/Training Program
DX: N13.6 Pyonephrosis (principal); I13.0 Hypertensive heart and chronic kidney disease with heart failure and stage 1 through stage 4 chronic kidney disease, or unspecified chronic kidney disease; I50.42 Chronic combined systolic (congestive) and diastolic (congestive) heart failure; N17.9 Acute kidney failure, unspecified; F41.9 Anxiety disorder, unspecified; J44.9 Chronic obstructive pulmonary disease, unspecified; N18.32 Chronic kidney disease, stage 3b; D63.1 Anemia in chronic kidney disease; F10.90 Alcohol use, unspecified, uncomplicated; F15.90 Other stimulant use, unspecified, uncomplicated; F32.A Depression, unspecified; Z90.49 Acquired absence of other specified parts of digestive tract; Z90.89 Acquired absence of other organs; Z98.890 Other specified postprocedural states; Z88.8 Allergy status to other drugs, medicaments and biological substances; Z79.899 Other long term (current) drug therapy; Z79.82 Long term (current) use of aspirin
CPT/HCPCS: 36415; 74176; 80048; 80053; 81001; 83605; 83690; 83735; 85025; 87077; 87086; 87186; 94640; 94664; 94760; 96361; 96365; 96372; 96375; 96376; 99285-25; A9270; G0378; J0696; J1171; J1644; J2405; J2765; J3010; J7030; J7050; J7120

== ENCOUNTER → 2024-06-09 | Outpatient (CLI) | payer MEDICARE, OTHER ==
[~2024-06-09] MED LIST changes: +CEFP200 PO; +Prinivil10 MG PO
[2024-06-09 11:54] LABS: BASOPHILS ABSOLUTE AUTO 0.07 K/mm3 (0.00-0.23); BASOPHILS PERCENT AUTO 1 % (0-2); EOSINOPHILS ABSOLUTE AUTO 0.15 K/mm3 (0.00-0.68); EOSINOPHILS PERCENT AUTO 1 % (0-6); Hematocrit 31.9 % (33.0-51.0); Hemoglobin 10.2 g/dL (11.5-16.0); IMMATURE GRAN ABSOLUTE AUTO 0.04 K/mm3 (0.00-0.10); IMMATURE GRAN PERCENT AUTO 0 % (0-1); LYMPHOCYTES ABSOLUTE AUTO 2.27 K/mm3 (0.84-5.20); LYMPHOCYTES PERCENT AUTO 22 % (21-46); MONOCYTES ABSOLUTE AUTO 0.96 K/mm3 (0.16-1.47); MONOCYTES PERCENT AUTO 9 % (4-13); Mean Corpuscular Volume 94 fL (80-100); Mean Platelet Volume 8.3 fL (9.1-12.4); NEUTROPHILS ABSOLUTE AUTO 6.88 K/mm3 (1.96-9.15); NEUTROPHILS PERCENT AUTO 66 % (41-73); Platelet Count 594 K/mm3 (150-400); RDW Standard Deviation 50.7 fL (35.1-46.3); White Blood Cell Count 10.37 K/mm3 (4.00-11.30)
[2024-06-09 12:06] LABS: Albumin, Blood 3.7 g/dL (3.4-5.0); Albumin/Globulin Ratio 0.8 (0.8-1.8); Bilirubin, Total 0.2 mg/dL (0.1-1.0); Bun/Creatinine Ratio 15.8 (12.0-20.0); Calcium, Blood 9.2 mg/dL (8.5-10.1); Creatinine, Blood 1.83 mg/dL (0.40-1.00); Globulin, Blood 4.9 g/dL (2.2-4.0); Potassium, Blood 4.4 mmol/L (3.5-5.5); Total Protein, Blood 8.6 g/dL (6.4-8.2)
== END | disposition home or self-care (01) ==
LOC: LAB SHORT 11:48 → LAB 11:48
PROVIDERS: Chiropractor
DX: R31.9 Hematuria, unspecified (principal)
CPT/HCPCS: 80053; 85025; 87086

== ENCOUNTER → 2024-08-11 | Outpatient (CLI) | payer OTHER | LOC: LAB 12:00 → LAB SHORT 12:00 | DX: N39.0 Urinary tract infection, site not specified (principal); R31.9 Hematuria, unspecified | CPT/HCPCS: 87086 ==

== ENCOUNTER → 2025-04-12 | Outpatient (CLI) | payer OTHER ==
[2025-04-12 17:52] LABS: Source, Urine Clean Catch
[2025-04-12 18:09] LABS: Bilirubin, Urine Neg (Neg); Glucose Qualitative, Urine 1+ (Neg); Ketones, Urine Neg (Neg); Leukocyte Esterase, Urine 3+ (Neg); Protein, Urine 3+ (Neg); Specific Gravity, Urine 1.015 (1.003-1.022); Urobilinogen, Urine NORM (Normal)
[2025-04-12 18:17] LABS: Color, Urine Yellow (P-Yellow)
[2025-04-12 18:20] LABS: White Blood Cells, Urine TNTC /hpf (0-5)
== END ==
LOC: LAB SHORT 08:50 → LAB 08:50
PROVIDERS: Registered Nurse
DX: N30.91 Cystitis, unspecified with hematuria (principal)
CPT/HCPCS: 81001; 87086

== ENCOUNTER → 2025-04-16 | Outpatient (CLI) | payer OTHER ==
[2025-04-16 17:26] LABS: Source, Urine Clean Catch
[2025-04-16 18:42] LABS: Bilirubin, Urine Neg (Neg); Color, Urine Yellow (P-Yellow); Glucose Qualitative, Urine 3+ (Neg); Ketones, Urine Neg (Neg); Leukocyte Esterase, Urine 2+ (Neg); Protein, Urine 2+ (Neg); Specific Gravity, Urine 1.015 (1.003-1.022); Urobilinogen, Urine NORM (Normal)
[2025-04-16 19:01] LABS: Red Blood Cells, Urine 25-50 /hpf (0-2)
== END ==
LOC: LAB SHORT 17:24 → LAB 17:24
PROVIDERS: Registered Nurse
DX: N18.32 Chronic kidney disease, stage 3b (principal); N30.91 Cystitis, unspecified with hematuria
CPT/HCPCS: 81001; 87086